=== PATIENT | female | born 1995 | race Caucasian/White ===

== ENCOUNTER 2017-05-30 14:56 | Emergency (ER) | payer MEDICAID ==
[~2017-05-30] VITALS: Ht 154.9 cm; Wt 61.4 kg
[2017-05-30 15:06] VITALS: BP 118/51
--- NOTE | 2017-05-30 17:13 | NUR ---
PATIENT TO BED #5
--- NOTE | 2017-05-30 17:20 | NUR ---
21/F PRESENT TO ER C/O NAUSEA AND FACIAL NUMBNESS x 4 DAYS. PT DENIES ANY INJURY OR TRAUMA. HX: GASTRITIS MEDS: NONE DENIES V/D; SKIN IS PINK/WARM/DRY; AAOX4 WITH EVEN AND STEADY GAIT; LUNGS CLEAR BL; HR EVEN AND REGULAR; PT DENIES ANY FEVER, CP, SOB, OR COUGH AT THIS TIME; PATIENT STATES PAIN OF 8/10 AT THIS TIME; VSS; PATIENT POSITIONED FOR COMFORT; HOB ELEVATED; BEDRAILS UP X2; BED DOWN. ER MD MADE AWARE OF PT STATUS.
[2017-05-30 17:48] VITALS: BP 114/75
== END 2017-05-30 17:48 | disposition home or self-care (01) ==
LOC: MED 14:56
DX: A08.4 Viral intestinal infection, unspecified (principal)
CPT/HCPCS: 81002; 81025; 99283

== ENCOUNTER 2017-11-19 16:05 | Emergency (ER) | payer MEDICAID ==
[~2017-11-19] VITALS: Ht 154.9 cm; Wt 62.7 kg
[2017-11-19 16:15] VITALS: BP 120/79
--- NOTE | 2017-11-19 17:27 | NUR ---
PT TAKEN TO CHAIR B @ 17:28
[2017-11-19 18:32] LABS: APPEARANCE,URINE CLEAR (CLEAR); BILIRUBIN,URINE NEGATIVE (NEGATIVE); BLOOD, URINE 3+ (NEGATIVE); COLOR,URINE ORANGE (YELLOW); LEUKOCYTE ESTERASE ,URINE TRACE (NEGATIVE); NITRITE, URINE POSITIVE (NEGATIVE); PH,URINE 5.5 (5.0-9.0); UGLUCOSE NEGATIVE (NEGATIVE)
[2017-11-19 18:39] LABS: BARBITURATE, URINE NEG. ng/ml (NEG <=200); BENZODIAZEPINE, URINE NEG. ng/mL (NEG <=200); CANNABINOID, URINE NEG. ng/mL (NEG <=50); COCAINE, URINE NEG. ng/mL (NEG <=300); OPIATE, URINE NEG. ng/mL (NEG <=2000); PHENCYCLIDINE SCREEN,URINE NEG. ng/mL (NEG <=25)
--- NOTE | 2017-11-19 18:40 | NUR ---
JAMES PASTEURIZING SUPERVISOR STATED IN 5 MINS UA WILL BE RESULTED--- NOTIFIED
[2017-11-19 18:41] LABS: RBC,URINE 20-50 /HPF (0-5); WBC,URINE 20-60 /HPF (0-5)
--- NOTE | 2017-11-19 19:04 | NUR ---
REPORT GIVEN TO AIMEE LEDBETTER.
[2017-11-19 19:46] VITALS: BP 119/82
--- NOTE | 2017-11-19 19:46 | NUR ---
Patient discharged with v/s stable. Written and verbal after care instructions given and explained. Patient alert, oriented and verbalized understanding of instructions. Ambulatory with steady gait. All questions addressed prior to discharge. ID band removed. Patient advised to follow up with PMD. Rx of IBUPROFEN 600MG, CIPROFLOXACIN 250MG AND PYRIDIUM 200MG given. Patient educated on indication of medication including possible reaction and side effects. Opportunity to ask questions provided and answered.
== END 2017-11-19 19:46 | disposition home or self-care (01) ==
LOC: MED 16:05
DX: N39.0 Urinary tract infection, site not specified (principal)
CPT/HCPCS: 80305; 81001; 81025; 87086; 99284